=== PATIENT | female | born 1975 | race Caucasian/White ===

== ENCOUNTER 2019-01-08 23:39 | Emergency (ER) | payer BC ==
[2019-01-08] MEDS ORDERED: NITROGLYCERIN 0.4MG SL TABLET #25 BTL SL ONE (23:41)
[2019-01-08] MEDS ORDERED: ASPIRIN 81 MG CHEWABLE TABLET PO ONE (23:41)
[2019-01-08] MEDS ORDERED: 0.9 % SODIUM CHLORIDE 1000ML 1,000 ML IV SCH (23:45)
--- NOTE | 2019-01-08 23:47 | Emergency Department Record ---
History of Present Illness - General Chief Complaint: Chest Pain Stated Complaint: CHEST PAIN Time Seen by Provider: 01/08/19 23:40 Source: Patient Mode of Arrival: Ambulatory Limitations: No limitations - History of Present Illness Initial Comments: 43 yo female presents to ED for evaluation of chest discomfort that began 30 minutes prior to arrival. Patient describes her pain symptoms as a pressure to the mid-chest region, rated 9/10 on arrival. Patient denies history of CAD, does report history of well-controlled asthma. Patient denies recent fevers, chills, or cough symptoms. Patient denies calf pain or swelling, denies history of DVT/PE previously. Patient does report history of hypothyrodism and family history of her mother having an NV at age 50. Patient denies smoking history. MD Complaint: Chest pain Onset/Timin -: Minutes(s) Onset: During rest Pain Location: Substernal Pain Radiation: Abdomen Severity scale (1-10): 9 Quality: Aching Consistency: Constant Improves With: Nothing Worsens With: Nothing Treatments Prior to Arrival: None - Related Data On Oral Contraceptives: No Home Medications Medication Instructions Recorded Confirmed Last Taken Albuterol Sulfate [Albuterol 2 inhaler IN ASDIR PRN 01/08/19 01/09/19 Unknown Sulfate Hfa] Biotin 1 tab PO DAILY 01/09/19 01/09/19 Unknown Calcium Carb/Vitamin D3/Vit K1 1 each PO DAILY 01/09/19 01/09/19 Unknown [Viactiv 650 mg-12.5 Mcg Chew] Cetirizine HCl [Zyrtec] 10 mg PO DAILY 01/09/19 01/09/19 Unknown Omeprazole [Prilosec] 40 mg PO DAILY 01/09/19 01/09/19 Unknown Sertraline HCl [Zoloft] 50 mg PO DAILY 01/09/19 01/09/19 Unknown Sumatriptan Succinate [Imitrex] 1 tab PO ASDIR PRN 01/09/19 01/09/19 Unknown Topiramate [Topamax] 1 tab PO BID 01/09/19 01/09/19 Unknown Allergies Allergy/AdvReac Type Severity Reaction Status Date / Time cyclobenzaprine Allergy Severe DIFFICULTY Verified 01/08/19 23:54 [From Flexeril] BREATHING hydrocodone Allergy BEHAVIORAL Verified 01/08/19 23:54 CHANGES latex AdvReac HYPERSENSIT Verified 01/08/19 23:54 IVITY Review of Systems Constitutional: Denies: Chills, Fever, Malaise, Night sweats Eyes: Denies: Eye discharge, Eye pain ENT: Denies: Congestion, Ear pain, Epistaxis Respiratory: Denies: Cough, Dyspnea Cardiovascular: Reports: Chest pain. Denies: Dyspnea on exertion, Palpitations Endocrine: Denies: Fatigue, Heat or cold intolerance Gastrointestinal: Denies: Abdominal pain, Nausea, Vomiting Genitourinary: Denies: Incontinence, Retention Musculoskeletal: Denies: Arthralgia, Back pain Skin: Denies: Bruising, Change in color Neurological: Denies: Abnormal gait, Confusion, Headache, Tingling, Tremors Psychiatric: Denies: Anxiety Hematological/Lymphatic: Denies: Anemia, Blood Clots Physical Exam - General General Appearance: Alert, Oriented x3, Cooperative, Mild distress Limitations: No limitations - Head Head exam: Atraumatic, Normocephalic, Normal inspection Head exam detail: negative: Abrasion, Contusion, Swartz's sign, General tenderness, Hematoma, Laceration - Eye Eye exam: Normal appearance. negative: Conjunctival injection, Periorbital swelling, Periorbital tenderness, Scleral icterus - ENT Ear exam: negative: Auricular hematoma, Auricular trauma Nasal Exam: negative: Active bleeding, Discharge, Dried blood, Foreign body Mouth exam: negative: Drooling, Laceration, Muffled voice, Tongue elevation - Neck Neck exam: Normal inspection. negative: Meningismus, Tenderness - Respiratory Respiratory exam: Normal lung sounds bilaterally. negative: Respiratory distress, Rhonchi, Stridor, Wheezes - Cardiovascular Cardiovascular Exam: Regular rate, Normal rhythm, Normal heart sounds - GI/Abdominal GI/Abdominal exam: Soft. negative: Distended, Rebound, Rigid, Tenderness - Rectal Rectal exam: Deferred - exam: Deferred - Extremities Extremities exam: Normal inspection. negative: Pedal edema, Tenderness - Back Back exam: Denies: CVA tenderness (R), CVA tenderness (L) - Neurological Neurological exam: Alert, Normal gait, Oriented X3 - Psychiatric Psychiatric exam: Normal affect, Normal mood - Skin Skin exam: Normal color. negative: Abrasion Type of lesion: negative: abrasion Course - Reevaluation(s) Reevaluation #1: 01/08/19 23:47 EKG: NSR 66 Normal axis, normal intervals No acute ST-T wave changes Reevaluation #2: 01/09/19 00:20 Laboratory studies were reviewed and appear grossly unremarkable for an acute process. CXR: No acute process PERC clinical decision rule was applied, and the patient does not have any of the following: -Age > 50 years -Pulse > 100 -Oxygen Saturation < 94% -History of Hemoptysis -Unilateral leg swelling -History or PE/DVT -Recent surgery or Trauma -Oral contraceptive/Hormone use The patient was deemed to be low-risk for cardiac disease based on the patients history and evaluation in the ED, HEART Score was applied and found to be 2. As a result, repeat Troponin in 3-hours appears appropriate and if negative for myocardial injury, the patient may be discharged home with appropriate outpatient follow-up for further evaluation. Patient was updated on all results, is currently resting pain-free following Nitro x 1. Will obtain 3-hour troponin and monitor in the ED until that time. Reevaluation #3: 01/09/19 03:14 Patient's repeat Troponin appears negative for myocardial injury. Patient was reassessed and is resting pain-free. Appears stable for discharge at this time with instructions to follow-up with her PCP in 3-5 days for further evaluation. Medical Decision Making - Lab Data Result diagrams: 01/08/19 23:45 01/08/19 23:45 Disposition Disposition: Discharge Clinical Impression: Chest pain Qualifiers: Chest pain type: unspecified Qualified Code(s): R07.9 - Chest pain, unspecified Disposition: Home, Self-Care Condition: (2) Stable Instructions: Chest Pain (ED) Additional Instructions: Return to ED if your symptoms worsen or if you have any concerns. Follow-up with your family doctor in 3-5 days as directed. Forms: Patient Portal Access Time of Disposition: 03:15 Quality - Quality Measures Quality Measures: N/A - Blood Pressure Screening Does Patient Have Any of the Following: No Blood Pressure Classification: Normal BP Reading Systolic Measurement: 118 Diastolic Measurement: 71 Screening for High Blood Pressure: < Normal BP, F/U Not Required > [[id number]]
[2019-01-08 23:53] LABS: ABSOLUTE NEUTROPHIL COUNT 6.38; BASO % 0.4 % (0-6); EOS % 3.4 % (0-6); GRAN % 57.8 % (47-80); HEMATOCRIT 35.9 % (35.0-47.0); HEMOGLOBIN 11.2 gm/dl (11.6-16.0); LYMPH % 31.6 % (16-45); MEAN CELL VOLUME 82.5 fl (81-97); MEAN CORPUSCULAR HEMOGLOBIN 25.7 pg (27-33); MEAN CORPUSCULAR HGB CONC 31.2 g/dl (32-36); MONO % 6.8 % (0-9); PLATELET COUNT 381 K/uL (130-400); RED BLOOD COUNT 4.35 M/uL (3.80-5.40); RED CELL DISTRIBUTION WIDTH 15.6 % (11.5-14.5)
[2019-01-09 00:02] LABS: BLOOD UREA NITROGEN 21 mg/dL (6-20); CREATININE 0.7 mg/dL (0.5-0.9); EST GLOMERULAR FILTRATION RATE > 60 mL/min
[2019-01-09 00:03] LABS: BILIRUBIN,TOTAL < 0.20 mg/dL (0.2-1.0); TOTAL PROTEIN 6.9 g/dL (6.6-8.7)
[2019-01-09 00:05] LABS: GLUCOSE,RANDOM 115 mg/dL (74-109)
[2019-01-09 00:08] LABS: ALB/GLOB RATIO 1.8 (1.1-1.8); ALBUMIN 4.4 g/dL (4.0-5.0); ALKALINE PHOSPHATASE 78 U/L (35-104); ALT/SGPT 26 U/L (<33); AST/SGOT 43 U/L (10.0-35.0)
--- NOTE | 2019-01-10 10:01 | RADIOLOGY REPORT ---
EXAM: CHEST 2 VIEWS HISTORY: MID CHEST PAIN BEGINNING ONE HOUR PRIOR TO ADMISSION. TECHNIQUE: Upright PA and lateral views of the chest. COMPARISON: None. FINDINGS: The cardiomediastinal silhouette is normal in size and configuration. The pulmonary vasculature is nondilated. The lungs and pleural spaces are clear. No acute osseous abnormality. Mild dextrocurvature of the mid to lower thoracic spine. IMPRESSION: NO RADIOGRAPHIC EVIDENCE OF ACUTE CARDIOPULMONARY DISEASE. JOB NUMBER: [id number] MTDD
== END 2019-01-09 03:37 | disposition home or self-care (01) ==
LOC: ER 23:39
DX: R07.2 Precordial pain (principal); E03.9 Hypothyroidism, unspecified; R61 Generalized hyperhidrosis
CPT/HCPCS: 71046; 80053; 84484; 85025; 93005; 93010; 99284; J7030